=== PATIENT | female | born 1945 | race Caucasian/White ===

== ENCOUNTER → 2017-02-11 10:57 | Outpatient (CLI) | payer MEDICARE, BC, SELFPAY ==
--- NOTE | 2017-02-11 11:10 | XR_ITS ---
XR chest 2V HISTORY: ITS.REASON: COUGH, RT SIDED RIB PAIN ORDERING PHYSICIAN: Josselyn Jlaloh PATIENT AGE: 71 years COMPARISON: 03/20/2012 FINDINGS: The cardiomediastinal silhouette and pulmonary vascularity are within normal limits. The lungs are clear without infiltrates, suspicious nodules, or pleural effusions. No acute bony abnormalities. There are degenerative changes in the thoracic spine. IMPRESSION: Negative chest, no acute finding
--- NOTE | 2017-02-11 11:10 | XR_ITS ---
XR ribs RT 2V HISTORY: ITS.REASON: COUGH, RT SIDED RIB PAIN ORDERING PHYSICIAN: Josselyn Jalloh PATIENT AGE: 71 years COMPARISON: None FINDINGS: 2 views of the right ribs were obtained. No fracture or dislocation. No lytic or blastic change. IMPRESSION: Negative RIBS. If pain persists, consider follow-up exam in 7-[address] with 3-D reformats.
== END ==
PROVIDERS: PCP Nurse Practitioner Family; Visit Provider Nurse Practitioner Family
DX: R07.81 Pleurodynia (principal); R05 Cough
CPT/HCPCS: 71046; 71100

== ENCOUNTER → 2019-06-12 08:16 | Outpatient (CLI) | payer MEDICARE, BC, SELFPAY ==
--- NOTE | 2019-06-12 08:42 | MM_ITS ---
PROCEDURE: MM DIG SCREENING MAMM BI W/CAD DIGITAL BREAST TOMOSYNTHESIS INCLUDED Patient Age:73Y CLINICAL INDICATION: ROUTINE SCREENING no new complaints. No hormones but Family history maternal cousin with breast cancer in her 30s.. Paternal aunt. COMPARISON: DMSB DIG MAMM-SCREEN CATHERINE from 07/07/2014 DMDXUAVR DIG MAMM-DX UNI ADD VIEWS-RT from 07/18/2014 DMDXUAVR DIG MAMM-DX UNI ADD VIEWS-RT from 01/19/2015 BONE3 BONE DENSITOMETRY(HIP:LT SPINE from 06/09/2016 DMSB DIG MAMM-SCREEN CATHERINE W/CAD from 06/09/2016 TECHNIQUE: Standard CC and MLO images were obtained. R2 CAD reviewed. Bilateral digital breast tomosynthesis included. FINDINGS: Low-density breast bilateral. Generalized fatty replacement.. No new areas of concern either breast. No dominant or suspicious mass. No suspicious calcifications. Right breast: Small stable focal density is seen at the deep breast 6 o'clock right.-most likely a small roughly 6 mm intramammary node a noting its central lucency and umbilication Left breast:. Stable with no new areas of concern. Minor ductal prominence retroareolar region is similar to previous studies. A tiny 3.5 mm small smooth the round area upper-outer quadrant has been seen on previous studies and stable. IMPRESSION: Stable bilateral mammogram. No significant new areas of concern the the Bilateral follow-up 1 year recommended BI-RAD Category: 2 Benign Finding(s) FOLLOW-UP: 1YR 1 Year Follow-up (A letter has been sent to the patient regarding results of the study.) Dictated by: Praveen Gonzalez MD 06/12/2019 13:26 Electronically signed by Praveen Gonzalez MD in [place] 06/12/2019 13:26
== END ==
PROVIDERS: PCP Internal Medicine Adolescent Medicine; Visit Provider Internal Medicine Adolescent Medicine
DX: Z12.31 Encounter for screening mammogram for malignant neoplasm of breast (principal)
CPT/HCPCS: 77063; 77067

== ENCOUNTER → 2019-07-05 12:13 | Outpatient (CLI) | payer MEDICARE, BC, SELFPAY ==
--- NOTE | 2019-07-05 12:20 | XR_ITS ---
PROCEDURE: XR SACROILIAC JOINT BI MIN 3V CLINICAL INDICATION: TROCHANTERIC BURSITIS , RIGHT HIP COMPARISON: No exams were available for comparison FINDINGS: There is mild sclerosis of the iliac side of both SI joints and there is mild spurring at the inferior extent of the SI joints bilaterally. There is mild sclerosis of the symphysis pubis. 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 Jayjay Hays MD 07/05/2019 13:[address] Jayjay Hays MD in [place] 07/05/2019 13:04
--- NOTE | 2019-07-05 12:21 | XR_ITS ---
PROCEDURE: XR LUMBAR SPINE MIN 4V CLINICAL INDICATION: RIGHT SIDED SCIATICA and low back pain COMPARISON: No exams were available for comparison FINDINGS: There is normal curvature and alignment. All lumbar vertebrae appear intact. Multilevel degenerate changes are seen with disc space narrowing most prominent at the L2-3 L3-4 and L5-S1 levels. There is no pars defect. There prominent hypertrophic facet changes at the L 3 4, L4-5 and L5-S1 levels possibly resulting in some degree of bony spinal stenosis. IMPRESSION: Multilevel degenerate changes as noted, if there is a clinical suspicion of possible bony spinal stenosis is CT scan lumbar spine would be helpful for additional evaluation. Dictated by: Dr. Jayjay Hays MD 07/05/2019 13:[address] Jayjay Hays MD in [place] 07/05/2019 13:00
--- NOTE | 2019-07-05 12:21 | XR_ITS ---
PROCEDURE: XR HIP RT 2-3V W/PELVIS CLINICAL INDICATION: TROCHANTERIC BURSITIS, RIGHT SIDED SCIATICA COMPARISON: No exams were available for comparison FINDINGS: There is prominent asymmetrical joint space narrowing right hip, there is mild asymmetrical joint space narrowing left hip. There is minimal spurring of the inferior aspect of the right femoral head. The iliac bones and pubic bones appear intact. IMPRESSION: Moderately severe osteoarthritic change right hip, mild osteoarthritic changes left hip Dictated by: Dr. Jayjay Hays MD 07/05/2019 13:[address] Jayjay Hays MD in [place] 07/05/2019 13:02
== END ==
PROVIDERS: PCP Internal Medicine Adolescent Medicine; Visit Provider Internal Medicine Adolescent Medicine
DX: M70.61 Trochanteric bursitis, right hip (principal); M54.31 Sciatica, right side
CPT/HCPCS: 72110; 72202; 73502

== ENCOUNTER → 2020-06-22 11:46 | Outpatient (CLI) | payer MEDICARE, BC, SELFPAY ==
[2020-06-22 12:23] LABS: Basophils # 0.1 K/mm3 (0-0.2); Basophils % 1.1 % (0.1-2.0); Eosinophils # 0.3 K/mm3 (0.0-0.4); Eosinophils % 3.6 % (0.1-12.0); Hematocrit 35.2 % (37.0-47.0); Hemoglobin 10.6 g/dL (12.2-16.2); Lymphocytes # 2.5 K/mm3 (0.7-4.5); Lymphocytes % 32.7 % (10-50); Mean Corpuscular HGB Conc 30.1 g/dL (31.8-35.4); Mean Corpuscular Hemoglobin 25.1 pg (27.0-31.2); Mean Corpuscular Volume 83.4 fl (81-99); Mean Platelet Volume 7.7 fl (7.4-10.4); Monocytes # 0.6 K/mm3 (0.1-1.0); Neutrophils # 4.2 K/mm3 (1.8-7.8); Neutrophils % 54.6 % (37.0-80.0); Platelet Count 325 K/mm3 (142-424); Red Blood Count 4.22 M/mm3 (4.20-5.40); Red Cell Distribution Width 15.1 % (11.5-17.5); White Blood Count 7.6 K/mm3 (4.8-10.8)
[2020-06-22 12:31] LABS: Alanine Aminotransferase 14 U/L (12-78); Albumin Level 4.7 g/dl (3.5-5.0); Albumin/Globulin Ratio 1.8 (1.1-1.8); Alkaline Phosphatase 121 U/L (38-126); Anion Gap 10.5 mEq/L (5-15); Aspartate Amino Transferase 26 U/L (14-36); Bilirubin,Total 0.8 mg/dl (0.2-1.3); Blood Urea Nitrogen 17 mg/dl (7-17); Calcium 9.6 mg/dl (8.4-10.2); Carbon Dioxide 27 mmol/L (22.0-30.0); Chloride 104 mmol/L (98-107); Estimated Glomerular Filt Rate 71 ml/min (>60); GFR (African American) 85 ML/MIN (>60); Globulin 2.6 g/dL (1.3-3.2); Glucose 115 mg/dl (74-100); Potassium 4.5 mmoL/L (3.5-5.1); Sodium 137 mmol/L (136-145); Total Protein,Serum 7.3 g/dl (6.3-8.2)
[2020-06-22 13:10] LABS: 25-OH Vitamin D, Total 55.2 ng/mL (30-100)
== END ==
PROVIDERS: Visit Provider Internal Medicine Adolescent Medicine
DX: E55.9 Vitamin D deficiency, unspecified (principal)
CPT/HCPCS: 36415; 80053; 82306; 85025

== ENCOUNTER 2020-08-10 11:00 | Outpatient (RCR) | payer MEDICARE, BC, SELFPAY | END 2020-08-10 11:05 | disposition home or self-care (01) | LOC: PT 11:00 | PROVIDERS: PCP Internal Medicine Adolescent Medicine; Visit Provider Orthopaedic Surgery | DX: M16.11 Unilateral primary osteoarthritis, right hip (principal); Z96.641 Presence of right artificial hip joint | CPT/HCPCS: 97110; 97163 ==

== ENCOUNTER → 2020-09-24 10:52 | Outpatient (CLI) | payer MEDICARE, BC, SELFPAY ==
--- NOTE | 2020-09-24 10:59 | XR_ITS ---
PROCEDURE: XR CHEST 2V CLINICAL HISTORY: RT SIDED CHEST PAIN COMPARISON: CR CXR CHEST(2 VIEWS-NOT PORTABLE) from 03/20/2012 CR CXR2V XR chest 2V from 02/11/2017 FINDINGS: The cardiomediastinal silhouette and pulmonary vascularity are within normal limits. The lungs are clear without infiltrates, suspicious nodules, or pleural effusions. Degenerative changes thoracic spine. IMPRESSION: No acute findings. Dictated by: Abilio Giraldo MD 09/24/2020 11:19 Abilio Giraldo MD in [place] 09/24/2020 11:19
--- NOTE | 2020-09-24 10:59 | XR_ITS ---
PROCEDURE: XR RIBS RT MIN 3V W CXR1V CLINICAL INDICATION: RT SIDED CHEST PAIN COMPARISON: CR CXR CHEST(2 VIEWS-NOT PORTABLE) from 03/20/2012 CR CXR2V XR chest 2V from 02/11/2017 FINDINGS: No fracture or dislocation. No lytic or blastic change. There is mild lumbar curvature convex right. Surgical clips are present in the epigastric region and right upper quadrant IMPRESSION: No acute findings. Dictated by: Abilio Giraldo MD 09/24/2020 11:20 Abilio Giraldo MD in [place] 09/24/2020 11:20
== END ==
PROVIDERS: PCP Internal Medicine Adolescent Medicine; Visit Provider Internal Medicine Adolescent Medicine
DX: R07.89 Other chest pain (principal)
CPT/HCPCS: 71046; 71101

== ENCOUNTER → 2020-11-11 10:38 | Outpatient (CLI) | payer MEDICARE, BC, SELFPAY ==
--- NOTE | 2020-11-11 10:41 | MM_ITS ---
PROCEDURE INFORMATION: Exam: MG Bilateral Screening 3D Mammography Exam date and time: 11/11/2020 10:41 AM Age: 75 years old Clinical indication: Encounter for screening mammogram for malignant neoplasm of breast TECHNIQUE: Imaging protocol: Bilateral screening tomosynthesis and 2D mammography including computer-aided detection (CAD) when performed. COMPARISON: mammogram dated 06/09/2016 FINDINGS: MAMMOGRAPHY: Breast composition: The breast tissue is composed of scattered areas of fibroglandular density. Mass: None. Architectural distortion: None. Calcifications: No suspicious calcifications. Asymmetric density: None. Skin thickening: None. Axillary adenopathy: None. IMPRESSION: No mammographic evidence of malignancy. Annual screening is recommended unless otherwise clinically indicated. ASSESSMENT: BI-RADS Category 1: Negative
== END ==
PROVIDERS: PCP Internal Medicine Adolescent Medicine; Visit Provider Internal Medicine Adolescent Medicine
DX: Z12.31 Encounter for screening mammogram for malignant neoplasm of breast (principal)
CPT/HCPCS: 77063; 77067

== ENCOUNTER → 2020-12-24 11:19 | Outpatient (CLI) | payer MEDICARE, BC, SELFPAY ==
[2020-12-24 12:05] LABS: Basophils # 0.1 K/mm3 (0-0.2); Basophils % 1.1 % (0.1-2.0); Eosinophils # 0.3 K/mm3 (0.0-0.4); Eosinophils % 4.2 % (0.1-12.0); Hematocrit 31.3 % (37.0-47.0); Hemoglobin 9.9 g/dL (12.2-16.2); Lymphocytes # 2.2 K/mm3 (0.7-4.5); Mean Corpuscular HGB Conc 31.6 g/dL (31.8-35.4); Mean Corpuscular Hemoglobin 24.6 pg (27.0-31.2); Mean Corpuscular Volume 77.9 fl (81-99); Mean Platelet Volume 7.6 fl (7.4-10.4); Monocytes # 0.6 K/mm3 (0.1-1.0); Monocytes % 7.9 % (1.7-9.3); Neutrophils # 4.3 K/mm3 (1.8-7.8); Neutrophils % 57.7 % (37.0-80.0); Platelet Count 337 K/mm3 (142-424); Red Blood Count 4.02 M/mm3 (4.20-5.40); White Blood Count 7.4 K/mm3 (4.8-10.8)
[2020-12-24 13:13] LABS: Alanine Aminotransferase 13 U/L (12-78); Albumin Level 4.4 g/dl (3.5-5.0); Albumin/Globulin Ratio 1.7 (1.1-1.8); Alkaline Phosphatase 113 U/L (38-126); Anion Gap 10.6 mEq/L (5-15); Aspartate Amino Transferase 24 U/L (14-36); Bilirubin,Total 0.5 mg/dl (0.2-1.3); Blood Urea Nitrogen 12 mg/dl (7-17); Calcium 9.4 mg/dl (8.4-10.2); Carbon Dioxide 28 mmol/L (22.0-30.0); Chloride 104 mmol/L (98-107); Chol/HDL Ratio 2.2 (1-3.5); Cholesterol 199 mg/dl (140-200); Estimated Glomerular Filt Rate 82 ml/min (>60); GFR (African American) 99 ML/MIN (>60); Globulin 2.6 g/dL (1.3-3.2); Glucose 105 mg/dl (74-100); HDL Cholesterol 92 mg/dl (40-60); Potassium 4.6 mmoL/L (3.5-5.1); Sodium 138 mmol/L (136-145); Triglycerides 106 mg/dl (30-150); VLDL Cholesterol 21 mg/dL (0-40)
[2020-12-24 13:24] LABS: Direct LDL Cholesterol 98.61 mg/dL (100-129)
[2020-12-24 13:43] LABS: Thyroid Stimulating Hormone 3.48 uIU/mL (0.465-4.68)
[2020-12-24 14:01] LABS: Vitamin B12 209 pg/mL (239-931)
== END ==
PROVIDERS: Visit Provider Internal Medicine Adolescent Medicine
DX: I48.91 Unspecified atrial fibrillation (principal); E03.9 Hypothyroidism, unspecified; E66.9 Obesity, unspecified; Z68.38 Body mass index [BMI] 38.0-38.9, adult; Z98.84 Bariatric surgery status
CPT/HCPCS: 36415; 80053; 80061; 82306; 82607; 84443; 85025

== ENCOUNTER → 2021-06-26 10:58 | Outpatient (CLI) | payer MEDICARE, BC, SELFPAY | PROVIDERS: Visit Provider Surgery | DX: Z01.812 Encounter for preprocedural laboratory examination (principal); Z20.822 Contact with and (suspected) exposure to COVID-19; Z13.810 Encounter for screening for upper gastrointestinal disorder; D64.9 Anemia, unspecified | CPT/HCPCS: C9803; U0003; U0005 ==

== ENCOUNTER 2021-06-29 09:06 | Day surgery (SDC) | payer MEDICARE, BC, SELFPAY ==
[2021-06-25 12:38] VITALS: BMI 37.4
[2021-06-29] VITALS (11 sets, daily range): BP systolic 105–189; BP diastolic 53–103; PULSE 51–66; RESP 12–18; TEMP 36.3–36.7; O2SAT 92–99
--- NOTE | 2021-06-29 10:03 | P.PN_ITS ---
[facility] Anesthesia Checklist - Structural Data Admitted From: Home Planned Operative Procedure/s: egd,colonoscopy Consent for Planned Operative Procedure(s) Verified: Yes - Airway Assessment C-Spine Mobility Assessed: Yes TMJ Mobility Assessed: Yes Dentition: Good Dentition - Neurological Assessment Level of Consciousness: Awake, Alert, Appropriate - Anesthesia Plan Anesthesia Risk discussed: Yes Anesthesia Plan: Verified ASA Class: III Anesthesia Type: MAC [facility] History I have reviewed the patient's past medical history: Yes Medical History: Denies:: Cancer, Diabetes Mellitus Type 1, Diabetes Mellitus Type 2, Internal Pacemaker, MRSA, Seizures *Have you ever received a pneumonia vaccine?: Yes *Have you received a flu vaccine this season?: Yes Anesthesia experience/problems:: none Laterality Cases: Right: Total Hip Replacement, Bilateral: Carpal Tunnel Rel ease, Total Knee Replacement Other Surgeries: Yes: Cholecystectomy. No: Pacemaker Amputation: No Fractures: No - *Social History Last grade of school completed: High school graduate Smoking Status: Never smoker Alcohol Intake: never Substance Use Type: denies use *Occupational Status:: retired *Travel in the last 8 weeks: None Family Hx:: Cancer, Diabetes, Heart Attack, Coronary Artery Disease, Asthma, Hypertension, Thyroid Disorder
--- NOTE | 2021-06-29 11:09 | HMH.SCOPE ---
- Procedure: Date: 06/29/21 Patient Date of :: 1945 Procedure Performed:: Esophagogastroduodenoscopy with biopsy Colonoscopy Indications:: Anemia (iron deficient) History of gastric bypass Performing Provider:: Ayush Fairchild MD Referring Provider:: . Sedation:: Monitored anesthesia care Procedure:: After informed consent was obtained the patient was taken to the endoscopy suite. Sedation ensued after the patient was transferred to the left lateral decubitus position. Pulse, blood pressure, and oxygen saturation were monitored throughout the procedure. The endoscope was advanced beyond the duodenal bulb. Retroflexion within the gastric lumen was accomplished. The gastroscope was carefully removed. Digital rectal exam revealed no significant abnormality. The colonoscope was placed in position. The entire colon was evaluated. The colonoscope was carefully removed and the patient was transferred to recovery in stable condition. Please see findings and specimens below for detail. Findings:: Gastroesophageal junction at 36 cm Small gastric remnant Visible suture material at anastomosis No significant inflammatory response Mild hemorrhoidal cushions/tags Bowel preparation moderate to poor Pandiverticulosis Profound sigmoid tortuosity (limited maneuverability of colonoscope) Specimens:: Gastric remnant biopsy Recommendations:: Serial hemoglobin/hematocrit UGI/SBFT Possible capsule endoscopy if anatomy allows Barium enema in relatively near future secondary to limitations in visualization on colonoscopy Complications:: No immediate Flat/upright abdominal films ordered secondary to increased difficulty of colonoscopy. Estimated blood obtained (mL): 1
--- NOTE | 2021-06-29 13:00 | XR_ITS ---
FINAL REPORT CLINICAL HISTORY: postop..looking for free air FINDINGS: A PA view of the chest was obtained. The cardiac and mediastinal silhouettes are within normal limits. There are low lung volumes with mild bibasilar atelectasis. There is no free air beneath the diaphragm. Upright and supine views of the abdomen reveal a nonspecific but nonobstructive bowel gas pattern. There is no evidence of small bowel obstruction. There are surgical clips in the abdomen bilaterally. There are no pathologic calcifications. No acute osseous abnormalities identified. IMPRESSION: Nonspecific but nonobstructive bowel gas pattern. Reviewed, Interpreted and Dictated by Afua Urena MD Transcribed by Rios Adrian Authenticated by Afua Urena MD on 06/29/2021 02:36:50 PM [facility]
--- NOTE | 2021-06-29 14:27 | SUR.PHASEII ---
06/29/21@1420- Pt cleared to be d/c home per .
== END 2021-06-29 14:25 | disposition home or self-care (01) ==
LOC: OUTP 09:07
PROVIDERS: PCP Internal Medicine Adolescent Medicine; Visit Provider Surgery
PROC: 0DJ08ZZ Inspection of Upper Intestinal Tract, Via Natural or Artificial Opening Endoscopic (ICD-10-PCS; CPT 43235; principal; 2021-06-29 10:30)
DX: D50.9 Iron deficiency anemia, unspecified (principal); Z98.84 Bariatric surgery status; K64.9 Unspecified hemorrhoids; K57.30 Diverticulosis of large intestine without perforation or abscess without bleeding; K56.2 Volvulus; Z80.9 Family history of malignant neoplasm, unspecified; Z83.3 Family history of diabetes mellitus; Z82.49 Family history of ischemic heart disease and other diseases of the circulatory system; Z82.5 Family history of asthma and other chronic lower respiratory diseases; Z83.49 Family history of other endocrine, nutritional and metabolic diseases; Z82.3 Family history of stroke; Z88.8 Allergy status to other drugs, medicaments and biological substances; Z79.899 Other long term (current) drug therapy
CPT/HCPCS: 43239; 45378; 74021; 88305

== ENCOUNTER → 2021-07-07 11:22 | Outpatient (CLI) | payer MEDICARE, BC, SELFPAY ==
[2021-07-07 12:17] LABS: Hematocrit 33.8 % (37.0-47.0); Hemoglobin 10.9 g/dL (12.2-16.2)
== END ==
PROVIDERS: PCP Internal Medicine Adolescent Medicine; Visit Provider Surgery
DX: D50.8 Other iron deficiency anemias (principal); Z98.84 Bariatric surgery status
CPT/HCPCS: 36415; 85014; 85018

== ENCOUNTER → 2021-07-19 08:24 | Outpatient (CLI) | payer MEDICARE, BC, SELFPAY ==
--- NOTE | 2021-07-19 08:24 | FL_ITS ---
FINAL REPORT CLINICAL HISTORY: C/o dysphagia, vomiting (mostly w meats), and pills getting stuck x 1 month FINDINGS: UPPER GI SERIES AND SMALL BOWEL FOLLOW THROUGH HISTORY: Dysphagia, vomiting. PROCEDURE: Patient ingested thick and thin barium contrast. Spot and overhead films were performed. Additional contrast was administered for small bowel follow through. A total of 29 images were saved. FINDINGS: UGI: There is a small sliding-type hiatal hernia. No mucosal defects are seen. There is mild esophageal dysmotility. There are postoperative changes of gastric bypass. There is no leak or obstruction. There is no G-G fistula identified. No gastric filling defects are seen. There is gastroesophageal reflux to the thoracic inlet. 13mm barium tablet passes easily through the esophagus and into the gastric pouch. SBFT: The resident caregiver film demonstrates surgical clips in the upper quadrants. The transit time to the colon is normal. Contrast reaches the colon in approximately 15 minutes. The mucosal fold pattern is normal . Spot images of the terminal ileum are unremarkable . IMPRESSION: Small hiatal hernia with gastroesophageal reflux. Mild esophageal dysmotility. Postoperative changes of gastric bypass without leak or G-G fistula. Normal small bowel follow-through . Reviewed, Interpreted and Dictated by Jim Cui III, MD Transcribed by Patricia Sanchez PA-C Authenticated and [facility]
== END ==
PROVIDERS: PCP Internal Medicine Adolescent Medicine; Visit Provider Surgery
DX: D50.8 Other iron deficiency anemias (principal); Z98.84 Bariatric surgery status
CPT/HCPCS: 74246; 74248

== ENCOUNTER → 2023-01-04 13:05 | Outpatient (CLI) | payer MEDICARE, BC, SELFPAY ==
--- NOTE | 2023-01-04 13:10 | MM_ITS ---
PROCEDURE INFORMATION: Exam: MG Bilateral Screening 3D Mammography Exam date and time: 01/04/2023 1:08 PM Age: 77 years old Clinical indication: Screening examination TECHNIQUE: Imaging protocol: Bilateral Screening tomosynthesis and 2D mammography including computer-aided detection (CAD) when performed. COMPARISON: 1. MG MM DIG SCREENING MAMM BI W/CAD 11/11/2020 10:51 AM 2. MG MM DIG SCREENING MAMM BI W/CAD 06/12/2019 8:43 AM FINDINGS: MAMMOGRAPHY: Breast composition: There are scattered areas of fibroglandular density. Mass: None. Architectural distortion: None. Calcifications: No suspicious calcifications. Asymmetric density: None. Skin thickening: None. Axillary adenopathy: None. IMPRESSION: No mammographic evidence of malignancy. Annual screening is recommended unless otherwise clinically indicated. ASSESSMENT: BI-RADS Category 1: Negative
== END ==
PROVIDERS: PCP Internal Medicine Adolescent Medicine; Visit Provider Internal Medicine Adolescent Medicine
DX: Z12.31 Encounter for screening mammogram for malignant neoplasm of breast (principal)
CPT/HCPCS: 77063; 77067

== ENCOUNTER 2023-09-28 07:50 | Outpatient (CLI) | payer MEDICARE, BC, SELFPAY ==
--- NOTE | 2023-09-28 07:53 | MR_ITS ---
FINAL REPORT CLINICAL HISTORY: HEADACHE COMPARISON: None FINDINGS: Multi planar MR imaging was obtained through the brain without contrast. The midline structures appear intact. There is no evidence of Chiari malformation. Mild age-appropriate atrophy is noted. On T2 and flair axial images there are scattered small foci of increased signal in the deep white matter consistent with mild changes of ischemic/gliotic microvascular disease. On diffusion-weighted images there is no evidence of restricted diffusion. The visualized paranasal sinuses demonstrate mild right maxillary mucoperiosteal thickening. The seventh and eighth nerve root complexes are intact. 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 Reviewed, Interpreted and Dictated by Andrea Ayers MD Transcribed by Blanka Olivas Authenticated and [facility]
== END 2023-09-28 23:59 | disposition home or self-care (01) ==
LOC: RAD 07:51
PROVIDERS: PCP Internal Medicine Adolescent Medicine; Visit Provider Internal Medicine Adolescent Medicine
DX: G44.89 Other headache syndrome (principal); M79.10 Myalgia, unspecified site
CPT/HCPCS: 70551

== ENCOUNTER 2024-03-15 13:59 | Outpatient (CLI) | payer MEDICARE, BC, SELFPAY ==
--- NOTE | 2024-03-15 14:36 | MM_ITS ---
PROCEDURE INFORMATION: Exam: MG Bilateral Screening 3D Mammography Exam date and time: 03/15/2024 2:38 PM Age: 78 years old Clinical indication: Screening examination TECHNIQUE: Imaging protocol: Bilateral Screening tomosynthesis and 2D mammography including computer-aided detection (CAD) when performed. COMPARISON: 1. MG MM DIG SCREENING MAMM BI W/CAD 01/04/2023 1:08 PM 2. MG MM DIG SCREENING MAMM BI W/CAD 11/11/2020 10:51 AM FINDINGS: MAMMOGRAPHY: Breast composition: There are scattered areas of fibroglandular density. Mass: None. Architectural distortion: None. Calcifications: No suspicious calcifications. Asymmetric density: None. Skin thickening: None. Axillary adenopathy: None. IMPRESSION: No mammographic evidence of malignancy. Annual screening is recommended unless otherwise clinically indicated. ASSESSMENT: BI-RADS Category 1: Negative.
== END 2024-03-15 23:59 | disposition home or self-care (01) ==
LOC: RAD 14:01
PROVIDERS: PCP Internal Medicine Adolescent Medicine; Visit Provider Internal Medicine Adolescent Medicine
DX: Z12.31 Encounter for screening mammogram for malignant neoplasm of breast (principal)
CPT/HCPCS: 77063; 77067